=== PATIENT | male | born 1980 | race Caucasian/White ===

== ENCOUNTER 2018-07-20 15:12 | Emergency (ER) | payer SELFPAY, OTHER | END 2018-07-20 21:57 | disposition home or self-care (01) | LOC: E/R 15:12 | DX: F10.920 Alcohol use, unspecified with intoxication, uncomplicated (principal); R40.2142 Coma scale, eyes open, spontaneous, at arrival to emergency department; R40.2252 Coma scale, best verbal response, oriented, at arrival to emergency department; R51 Headache | CPT/HCPCS: 70450; 72125; 99284-25 ==